=== PATIENT | female | born 1965 | race African-American/Black ===

== ENCOUNTER 2019-07-04 00:55 | Day surgery (SDC) | payer OTHER, SELFPAY ==
[2019-06-22 11:13] VITALS: BMI 42.4
[2019-07-04 06:45] VITALS: BP 143/80; PULSE 75; RESP 20; TEMP 36.2; O2SAT 97
[2019-07-04] MEDS: LACTATED RINGERS 1,000 ML 30 ML IV CONT (07:10)
--- NOTE | 2019-07-04 07:20 | P.HP_ITS ---
History of Present Illness History of Present Illness Consent: Risks, benefits, and alternatives have been discussed and questions answered. Patient agrees to proceed with procedure. Chief complaint: thick endometrium, no endocervical cells on pap Narrative: Jamee Beverly is a 53 year old female with recent CT scan showing thickened endometrium. Patient without bleeding. Pelvic u/s done and endometrium noted at 11 mm. Discussed with patient possible pathology and need to further evaluate with hysteroscopy and D&C. Reviewed risks of infection, bleeding, and perforation. Also, pap tests without endocervical cell and plan ECC as well. Patient voiced understanding and agrees to proceed. [facility] Past Medical History Medical History (Updated 07/04/19 @ 07:26 by Kiki Bobo MD) Diabetes HTN (hypertension) Hypercholesteremia (normal spontaneous vaginal delivery) Sleep apnea Surgical History Surgical History (Updated 07/04/19 @ 07:25 by Kiki Bobo MD) H/O tubal ligation S/P Meds Home Medications and Allergies Home Medications Medication Instructions Recorded Confirmed Type aspirin 81 mg PO DAILY 06/22/19 06/22/19 History cetirizine [Zyrtec] 10 mg PO DAILY PRN 06/22/19 06/22/19 History cholecalciferol (vitamin D3) 5,000 unit PO DAILY 06/22/19 06/22/19 History [Vitamin D3] liraglutide [Victoza 3-Carmine] 1.8 mg SUBCUT DAILY 06/22/19 06/22/19 History losartan 25 mg PO DAILY 06/22/19 06/22/19 History metformin 1,000 mg PO BID 06/22/19 06/22/19 History paroxetine HCl 10 mg PO DAILY 06/22/19 06/22/19 History propranolol 60 mg PO QNOON 06/22/19 06/22/19 History rosuvastatin 5 mg PO DAILY 06/22/19 06/22/19 History Allergies Allergy/AdvReac Type Severity Reaction Status Date / Time No Known Allergies Allergy Verified 06/22/19 11:13 Exam Const: General: healthy appearing and alert Orientation/consciousness: patient oriented x3 Other: BMI 42 Resp: Effort & Inspection: normal respiratory effort Auscultation: clear to auscultation bilaterally Cardio: Rate: regular rate Rhythm: regular rhythm GI: GI Palp: Yes Soft to palpation, No Tenderness to palpation present (GI) a nd No Palpable mass present : External Female Exam: normal external appearance Speculum Exam - Vagina: normal appearance of the vagina and normal vaginal discharge Speculum Exam - Cervix: normal appearance of the cervix Bimanual exam- vagina & uterus: uterine size normal and consistency normal Bimanual Exam- Adnexa, other: normal adnexae and No adnexal tenderness Other: BME suboptimal due to panus Neuro: General: patient oriented x3 Assessment and Plan Assessment and plan (1) Thickened endometrium: Code(s): R93.89 - Abnormal findings on diagnostic imaging of other specified body structures Status: Acute Assessment and Plan: Plan hysteroscopy with D&C and ECC
[2019-07-04 07:29] LABS: Glucose Point of Care 101 (65-105)
--- NOTE | 2019-07-04 07:45 | P.PNAN_ITS ---
Anes - Initial Pre Proc Eval Procedure: Operation Date: 07/04/19 08:30 Proposed Procedures p Hysteroscopy, Dilation and Curettage, Endocervical Curettage - Kiki Bobo MD Date/Time: 07/04/19 07:45 Surgeon: Kiki Bobo MD Pre Op Diagnosis: thick endometrium, no endocervical cells on pap Patient Data Age: 53 Gender: F Height: 5 ft 2 in Weight: 105.23 kg Allergies Allergy/AdvReac Type Severity Reaction Status Date / Time No Known Allergies Allergy Verified 07/04/19 07:38 Home Medications Medication Instructions Recorded Confirmed Type aspirin 81 mg PO DAILY 06/22/19 07/04/19 History cetirizine [Zyrtec] 10 mg PO DAILY PRN 06/22/19 07/04/19 History cholecalciferol (vitamin D3) 5,000 unit PO DAILY 06/22/19 07/04/19 History [Vitamin D3] liraglutide [Victoza 3-Carmine] 1.8 mg SUBCUT DAILY 06/22/19 07/04/19 History losartan 25 mg PO DAILY 06/22/19 07/04/19 History metformin 1,000 mg PO BID 06/22/19 07/04/19 History paroxetine HCl 10 mg PO DAILY 06/22/19 07/04/19 History propranolol 60 mg PO QNOON 06/22/19 07/04/19 History rosuvastatin 5 mg PO DAILY 06/22/19 07/04/19 History Laboratory Tests 07/04/19 07:28 POC Capillary Glucose 101 mg/dl mg/dl (65-105) Patient hx anesthesia problems: none Family hx anesthesia problems: none [facility] Past Medical History Medical History (Updated 07/04/19 @ 07:26 by Kiki Bobo MD) Diabetes HTN (hypertension) Hypercholesteremia (normal spontaneous vaginal delivery) Sleep apnea Surgical History Surgical History H/O tubal ligation S/P Anes - Eval Final PreProcedure Day of Procedure 07/04/19 07:45 Patient weight: morbidly obese Heart: regular rate and rhythm Lungs: clear to auscultation Airway: Mallampati scale class II Neurological: alert and oriented Last oral intake: >/= 8 hours ASA classification: III Emergent: no Anesthetic plan: proceed Anesthesia type and monitoring: general GIVS and standard monitoring Informed Consent: The patient's anesthetic plan and its attendant risks and benefits were discussed with the patient/family/POA. Questions were solicited and answers provided to the satisfaction of the patient/family/POA.
[2019-07-04] MEDS: IBUPROFEN IV 800 MG/200 ML 800 MG/200 ML BAG 400 MG IVPB (08:16)
--- NOTE | 2019-07-04 08:32 | PM.OP ---
Procedure Note - Brief Procedure Note - Brief Date of procedure: 07/04/19 Pre-op diagnosis: thick endometrium, no endocervical cells on pap Post-op diagnosis: same Procedure performed: D&C hysteroscopy with ECC Anesthesia: MAC and local Surgeon: Kiki Bobo MD Estimated blood loss (mL): 5 Drains: No Packing: No Pathology: yes (endometrial and endocervical curettings) Complications: No immediate complications Condition: stable Disposition: PACU Findings: uterus 9 cm; grossly atrophic appearing
[2019-07-04 08:36] VITALS: BP 129/70; PULSE 87; RESP 16; O2SAT 91
[2019-07-04 08:56] LABS: Glucose Point of Care 85 (65-105)
[2019-07-04 09:05] VITALS: BP 139/80; PULSE 77; RESP 16; O2SAT 99
[2019-07-04 09:30] VITALS: BP 127/69; PULSE 68; RESP 16
--- NOTE | 2019-07-04 11:11 | OP_ITS ---
DATE OF PROCEDURE: 07/04/2019 PREOPERATIVE DIAGNOSIS: Thickened endometrium by ultrasound. POSTOPERATIVE DIAGNOSIS: Thickened endometrium by ultrasound. PROCEDURE: D and C, hysteroscopy. ANESTHESIA: MAC and local. FINDINGS: The uterus sounds to 9 cm. The endometrium appears grossly atrophic. ESTIMATED BLOOD LOSS: 5 cc. PATHOLOGY: Endometrial curettings and endocervical curettings. DESCRIPTION OF PROCEDURE: The patient was taken to the operating room, placed under anesthesia in the dorsal lithotomy position. Bivalved speculum was placed in the vagina. Cervix was grasped on the anterior lip with a tenaculum and injected with 1% lidocaine. The endocervical curettings were taken. The uterus was sounded to 9 cm. The cervix was serially dilated with Hegars. The diagnostic hysteroscope was placed with no abnormal findings noted. The hysteroscope was removed. The medium sharp curette was used to sharply curette the endometrium. Minimal material was obtained consistent with the atrophic appearance. All instruments were removed. The patient was awakened from anesthesia and taken to Recovery in stable condition. D I MT: Genna
== END 2019-07-04 09:41 | disposition home or self-care (01) ==
PROVIDERS: PCP Internal Medicine; Visit Provider Obstetrics & Gynecology Gynecology
PROC: 0U5B8ZZ Destruction of Endometrium, Via Natural or Artificial Opening Endoscopic (ICD-10-PCS; CPT 58563; principal; 2019-07-04 08:30)
DX: N85.8 Other specified noninflammatory disorders of uterus (principal); I10 Essential (primary) hypertension; E78.00 Pure hypercholesterolemia, unspecified; E11.9 Type 2 diabetes mellitus without complications; G47.30 Sleep apnea, unspecified; Z79.84 Long term (current) use of oral hypoglycemic drugs; Z79.82 Long term (current) use of aspirin; E66.01 Morbid (severe) obesity due to excess calories; Z68.41 Body mass index [BMI] 40.0-44.9, adult
CPT/HCPCS: 58558; 88305; A9270; J1100; J1741; J2250; J2405; J2704; J3010; J7030; J7120